=== PATIENT | male | born 1945 | race Caucasian/White ===

== ENCOUNTER 2017-12-23 17:26 | Emergency (ER) | payer OTHER, MEDICARE ==
[2017-12-23] MEDS ORDERED: Cyclobenzaprine 10 MG Tab PO ONE (17:27)
[2017-12-23] MEDS ORDERED: Acetaminophen/HYDROcodone 325-5 MG Tab PO ONE ×2 (17:27→20:59)
--- NOTE | 2017-12-23 17:56 | EDM.PDOC ---
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 Denies hitting his head or LOC. Has been urinating without difficulty and had small BM yesterday. Denies any numbness/ tingling in legs or arms. Vision is normal. Hearing normal. Mentation is normal. Onset Date: 12/20/17 Duration: Day(s):, Constant Location: Reports: Back, Other (left rib pain) Quality: Reports: Ache, Sharp, Throbbing Severity: Moderate Improves with: Reports: None Worsens with: Reports: Movement Associated Symptoms: Reports: No Other Symptoms Back Pain Score (Numeric/FACES): 3 - Related Data Allergies Allergy/AdvReac Type Severity Reaction Status Date / Time No Known Allergies Allergy Verified 12/23/17 17:52 Home Meds: Home Meds Naproxen Sodium [Aleve] 220 mg PO TID PRN 12/23/17 [History] Past Medical History Cardiovascular History: Reports: CAD, Hypertension - Past Surgical History Cardiovascular Surgical History: Reports: Coronary Artery Bypass GI Surgical History: Reports: Hernia, Abdominal Social & Family History - Family History Family Medical History: Noncontributory ED ROS GENERAL - Review of Systems Review Of Systems: See Below Constitutional: Reports: No Symptoms HEENT: Reports: No Symptoms Respiratory: Reports: No Symptoms Cardiovascular: Reports: No Symptoms Endocrine: Reports: No Symptoms GI/Abdominal: Reports: Constipation Musculoskeletal: Reports: Back Pain, Joint Pain, Muscle Pain, Muscle Stiffness, Other (left rib pain) Skin: Reports: No Symptoms Neurological: Reports: No Symptoms Psychiatric: Reports: No Symptoms Hematologic/Lymphatic: Reports: No Symptoms Immunologic: Reports: No Symptoms ED EXAM, GENERAL - Physical Exam Exam: See Below Exam Limited By: No Limitations General Appearance: Alert, WD/WN, No Apparent Distress Eye Exam: Bilateral Eye: EOMI, PERRL Ears: Normal External Exam, Normal Canal, Hearing Grossly Normal Nose: Normal Inspection, Normal Mucosa, No Blood Throat/Mouth: Normal Inspection, Normal Lips, Normal Teeth, Normal Gums, Normal Oropharynx, Normal Voice, No Airway Compromise Head: Atraumatic, Normocephalic Neck: Normal Inspection, Supple, Non-Tender, Full Range of Motion, Other ( tenderness left upper trap muscle; no C spine tenderness or step off deformity.) Respiratory/Chest: No Respiratory Distress, Lungs Clear, Normal Breath Sounds, No Accessory Muscle Use, Chest Non-Tender Cardiovascular: Normal Peripheral Pulses, Regular Rate, Rhythm, No Edema, No Gallop, No JVD, No Murmur, No Rub GI/Abdominal: Normal Bowel Sounds, Soft, Non-Tender, No Organomegaly, No Distention, No Abnormal Bruit, No Mass, Pelvis Stable (Male) Exam: Deferred Rectal (Males) Exam: Deferred Back Exam: Normal Inspection, Full Range of Motion, Paraspinal Tenderness, Other (tenderness low thoracic spine on palpation, at T 12 area; and left upper trap muscle tenderness on palpation.) Extremities: Normal Inspection, Normal Range of Motion, Non-Tender, No Pedal Edema, Normal Capillary Refill Neurological: Alert, Oriented, CN II-XII Intact, Normal Cognition, Normal Gait, No Motor/Sensory Deficits, Other (Strength is 5/5 throughout; sensation is intact throughout; decreased patella reflex left leg and absent on right. Urinated without difficulty. No clonus present.) Psychiatric: Normal Affect, Normal Mood Skin Exam: Warm, Dry, Intact, Normal Color, No Rash Course - Vital Signs Text/Narrative:: Offered patient pain medication or muscle relaxer and he states pain is controlled now and he doesn't need anything. Last Recorded V/S: Last Vital Signs Temp 36.8 C 12/23/17 20:40 Pulse 65 12/23/17 20:40 Resp 16 12/23/17 20:40 BP 173/70 H 12/23/17 20:40 Pulse Ox 97 12/23/17 20:40 - Orders/Labs/Meds Orders: Active Orders 24 hr Category Date Time Status Abdomen Pelvis w Cont [CT] Stat Exams 12/23/17 17:50 Taken Chest w Cont [CT] Stat Exams 12/23/17 17:50 Taken Labs: Laboratory Tests 12/23/17 12/23/17 Range/Units 18:18 18:18 WBC 6.7 (5.0-10.0) 10^3/uL RBC 5.00 (4.50-6.00) 10^6/uL Hgb 15.1 (14.0-18.0) g/dL Hct 43.9 (40.0-54.0) % MCV 87.8 (82.0-94.0) fL MCH 30.2 (27.0-32.0) pg MCHC 34.4 (33.0-38.0) g/dL RDW Coeff of Zachary 13.2 (11.0-15.0) % Plt Count 160 (150-400) 10^3/uL Neut % (Auto) 56.3 (35-85) % Lymph % (Auto) 29.4 (10-55) % [place] % (Auto) 8.6 (0-16) % Eos % (Auto) 4.7 (0-5) % Baso % (Auto) 1.0 (0-3) % Neut # (Auto) 3.79 (1.80-7.00) 10^3/uL Lymph # (Auto) 1.98 (1.00-4.80) 10^3/uL [place] # (Auto) 0.58 (0.00-0.80) 10^3/uL Eos # (Auto) 0.32 (0.00-0.45) 10^3/uL Baso # (Auto) 0.07 10^3/uL Sodium 138 (136-145) mEq/L Potassium 4.1 (3.5-5.0) mEq/L Chloride 103 (98-106) mEq/L Carbon Dioxide 27 (21-32) mmol/L BUN 19 H (7-18) mg/dL Creatinine 1.0 (0.7-1.3) mg/dL Est Cr Clr Drug Dosing 64.60 mL/min Estimated GFR (MDRD) > 60 (>=60) mL/min Glucose 104 H (75-99) mg/dL Calcium 8.4 (8.4-10.1) mg/dL Total Bilirubin 0.7 (0.0-1.0) mg/dL AST 26 (15-37) U/L ALT 29 (12-78) U/L Alkaline Phosphatase 80 (46-116) U/L Total Protein 6.8 (6.4-8.2) g/dL Albumin 3.6 (3.4-5.0) g/dL Meds: Medications Discontinued Medications Generic Name Dose Route Start Last Admin Trade Name Cheryl PRN Reason Stop Dose Admin Hydrocodone Bitart/Acetaminophen 1 tab 12/23/17 20:59 12/23/17 21:04 [place] 325-5 Mg PO 12/23/17 21:00 1 tab ONETIME ONE Administration Hydrocodone Bitart/Acetaminophen 2 packet 12/23/17 21:35 Take Home: Acetaminophen/Hydrocod, 2 Tab Pack PO 12/23/17 21:36 ONETIME ONE Cyclobenzaprine HCl 1 packet 12/23/17 21:35 Take Home: Cyclobenzaprine 10 Mg, 4 Tab Pack PO 12/23/17 21:36 ONETIME ONE Iopamidol 100 ml 12/23/17 17:57 12/23/17 18:48 Isovue-300 (61%) IVPUSH 12/23/17 17:58 100 ml ONETIME ONE Administration - Radiology Interpretation CT Results Date: 12/23/17 (T 12 burst fracture) CT Results Time: 20:32 (pulmonary nodules) Departure - Departure Time of Disposition: 21:39 Disposition: Home, Self-Care 01 Condition: Good Clinical Impression: Burst fracture of thoracic vertebra, Pulmonary nodule, Kidney cysts, Liver cyst , Hiatal hernia - Discharge Information *PRESCRIPTION DRUG MONITORING PROGRAM REVIEWED*: Not Applicable *COPY OF PRESCRIPTION DRUG MONITORING REPORT IN PATIENT RERE: Not Applicable Instructions: Hiatal Hernia, Pulmonary Nodule, Vertebral Fracture, [id number] Referrals: Provider,Unknown [Primary Care Provider] - Forms: ED Department Discharge Additional Instructions: Follow up with Dr. Diaz, Neurosurgeon on Monday at [address], [place], call [phone] for appt. time. Follow up with Improvement Auditor as soon as possible for lung nodules. Follow up with J2Ee Consultant for liver cyst. Follow up with Audiometrist for kidney cyst. Constipation- high fiber diet, plenty of fluids. Start Colace and Dulcolax twice daily. If symptoms worsen ie. numbness/ tingling in legs, unable to urinate or weakness in legs go to ED immediately. No lifting or twisting. - Problem List & Annotations (1) Closed burst fracture of T12 vertebra SNOMED Code(s): 407489653 Code(s): S22.081A - STABLE BURST FRACTURE OF T11-T12 VERTEBRA, INIT FOR CLOS FX Status: Acute Current Visit: Yes (2) Incidental pulmonary nodule SNOMED Code(s): 914860921 Code(s): R91.1 - SOLITARY PULMONARY NODULE Status: Acute Current Visit: Yes - Problem List Review Problem List Initiated/Reviewed/Updated: Yes - My Orders Last 24 Hours: My Active Orders 12/23/17 17:50 Abdomen Pelvis w Cont [CT] Stat Chest w Cont [CT] Stat - Assessment/Plan Last 24 Hours: My Active Orders 12/23/17 17:50 Abdomen Pelvis w Cont [CT] Stat Chest w Cont [CT] Stat Assessment:: T 12 burst fracture, back pain Pulmonary nodules, incidental finding. Constipation Hiatal hernia Simple cysts on liver simple cysts on kidney Plan: Consulted with Dr. Diaz, Neurosurgeon at [facility], whom recommends follow up in his office on Monday. Given take home pack of Flexeril and Hydrocodone (2 packs.) Follow up with Gastroenterology for liver cyst. Follow up with Nephrology for cyst on kidney. Follow up with Pulmonology for lung nodules. Constipation- advised to start Colace and Dulcolax, high fiber diet and plenty of fluids. Discussed all findings with patient and treatment plan and he verbalizes understanding and agreement.
[2017-12-23] MEDS ORDERED: Iopamidol 612 MG/ML 100 ML Bottle IVPUSH ONE (17:57)
[2017-12-23 18:41] LABS: CHLORIDE,CL 103 mEq/L (98-106); SODIUM,NA 138 mEq/L (136-145)
[2017-12-23] MEDS ORDERED: Take Home: Acetaminophen/HYDROcodone 325-5 MG, 2 Tab Pack PO ONE (21:35)
[2017-12-23] MEDS ORDERED: Take Home: Cyclobenzaprine 10 MG Tab, 4 Tab Pack PO ONE (21:35)
== END 2017-12-23 21:55 | disposition home or self-care (01) ==
LOC: CC.ED 17:26
DX: S22.081A Stable burst fracture of T11-T12 vertebra, initial encounter for closed fracture (principal); I10 Essential (primary) hypertension; W19.XXXA Unspecified fall, initial encounter
CPT/HCPCS: 36415; 71260; 74177; 80053; 85025; 99284; A9270; Q9967

== ENCOUNTER → 2018-02-01 | Day surgery (SDC) | payer MEDICARE, OTHER ==
[~2018-02-01] MED LIST: Lactated Ringers 1,000 ML IV SCH; Midazolam 1 MG/ML 2 ML SDV IV ONE; Midazolam 1 MG/ML 2 ML SDV ONE; fentaNYL 100 MCG/2 ML SDV IV ONE; fentaNYL 100 MCG/2 ML SDV ONE
--- NOTE | 2018-02-01 14:23 | OR ---
DATE OF OPERATION: 02/01/2018 PREOPERATIVE DIAGNOSIS: SCREENING COLONOSCOPY. POSTOPERATIVE DIAGNOSIS: SCREENING COLONOSCOPY. SURGEON: Otto Barrios MD PROCEDURE: TOTAL COLONOSCOPY. ANESTHESIA: Conscious sedation with IV Versed and fentanyl. SPECIMEN: None. FINDINGS: Mild sigmoid diverticulosis, otherwise normal. RECOMMENDATIONS: Followup colonoscopy for symptoms only. INDICATION FOR PROCEDURE: This 72-year-old male presents for screening colonoscopy. He had one over 10 years ago. DESCRIPTION OF PROCEDURE: After adequate preparation, a colonoscope was inserted into the rectum. This was easily passed all the way to the cecum. Confirmation of the cecum was made by visualization of the ileocecal valve and palpation in the right lower quadrant. I could also see a light shining through the right lower quadrant. A photograph of the ileocecal valve was taken. The bowel prep was good. On withdrawal of the scope, no abnormalities were noted except for mild sigmoid diverticulosis. Anal and rectal examinations were normal. There was no evidence of polyp growth. FABI/SHANNON /[id number] [facility] [place]
== END ==
LOC: CC.SDS 08:08
PROVIDERS: ATTEND Surgery
DX: Z12.11 Encounter for screening for malignant neoplasm of colon (principal); K57.30 Diverticulosis of large intestine without perforation or abscess without bleeding; I10 Essential (primary) hypertension; I25.10 Atherosclerotic heart disease of native coronary artery without angina pectoris; Z79.899 Other long term (current) drug therapy
CPT/HCPCS: 45378; J2250; J3010; J7120

== ENCOUNTER 2018-05-13 11:01 | Emergency (ER) | payer MEDICARE, OTHER ==
[2018-05-13] MEDS ORDERED: Cephalexin 500 MG Cap PO ONE (11:02)
[2018-05-13] MEDS ORDERED: Take Home: Cephalexin 500 MG Cap, 4 Cap Pack PO ONE (11:18)
--- NOTE | 2018-05-13 11:24 | EDM.PDOC ---
ED HPI GENERAL MEDICAL PROBLEM - General Chief Complaint: General Stated Complaint: itchy leg Time Seen by Provider: 05/13/18 11:12 Source of Information: Reports: Patient - History of Present Illness INITIAL COMMENTS - FREE TEXT/NARRATIVE: Patient has had right itchy leg for the last week and today put vingear on his leg and thinks now that something is in his leg. Says it is very bothersome and he has been using hydrocortisone topically. denies pain. or travel outside the [place] in the last 12 months. denies numbness or tingling. fever or chills. Onset: Gradual Onset Date: 05/06/18 Duration: Day(s): Location: Reports: Lower Extremity, Left Quality: Reports: Other (itching. 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 ) - Related Data Allergies Allergy/AdvReac Type Severity Reaction Status Date / Time No Known Allergies Allergy Verified 05/13/18 11:02 Home Meds: Home Meds Naproxen Sodium [Aleve] 250 mg PO BID PRN 12/23/17 [History] Lisinopril 10 mg PO DAILY 02/01/18 [History] Past Medical History Cardiovascular History: Reports: CAD, Hypertension Respiratory History: Reports: None - Past Surgical History Cardiovascular Surgical History: Reports: Coronary Artery Bypass Respiratory Surgical History: Reports: None GI Surgical History: Reports: Hernia, Abdominal - History Comment History Comment: reviewed and agree with nursing assessment. Social & Family History - Family History Family Medical History: Noncontributory - Tobacco Use Smoking Status *Q: Never Smoker - Living Situation & Occupation Living situation: Reports: , with Family (reviewed and agree with nursing assessement of and ) ED ROS GENERAL - Review of Systems Review Of Systems: See Below Constitutional: Reports: No Symptoms. Denies: Fever HEENT: Reports: No Symptoms Respiratory: Reports: No Symptoms Cardiovascular: Reports: No Symptoms Musculoskeletal: Reports: No Symptoms Skin: Reports: Rash, Erythema (left posterior leg) Neurological: Reports: No Symptoms Psychiatric: Reports: No Symptoms ED EXAM, GENERAL - Physical Exam Exam: See Below Exam Limited By: No Limitations General Appearance: Alert, WD/WN, No Apparent Distress Eye Exam: Bilateral Eye: PERRL Ears: Normal External Exam, Normal Canal, Hearing Grossly Normal Nose: Normal Inspection, Normal Mucosa Throat/Mouth: Normal Inspection, Normal Oropharynx, Normal Voice, No Airway Compromise Head: Atraumatic, Normocephalic Neck: Normal Inspection, Supple Respiratory/Chest: No Respiratory Distress, Lungs Clear, Normal Breath Sounds Cardiovascular: Normal Peripheral Pulses, Regular Rate, Rhythm Extremities: Non-Tender, No Pedal Edema, Normal Capillary Refill, Increased Warmth. No: Silvino's Sign Neurological: Alert, Oriented, CN II-XII Intact, Normal Cognition, Normal Gait Psychiatric: Normal Affect, Normal Mood Skin Exam: Warm, Dry, Intact, Normal Color Course - Vital Signs Last Recorded V/S: Last Vital Signs Temp 97.2 F 05/13/18 11:05 Pulse 81 05/13/18 11:05 Resp 18 05/13/18 11:05 BP 149/94 H 05/13/18 11:05 Pulse Ox 97 05/13/18 11:05 - Orders/Labs/Meds Meds: Medications Discontinued Medications Generic Name Dose Route Start Last Admin Trade Name Cheryl PRN Reason Stop Dose Admin Cephalexin 1 packet 05/13/18 11:18 Take Home: Cephalexin 500 Mg, 4 Cap Pack PO 05/13/18 11:19 ONETIME ONE - Re-Assessments/Exams Free Text/Narrative Re-Assessment/Exam: 05/13/18 11:26 patient was advised to use benadryl over the counter- as needed for itching. Take antibiotics till gone. Departure - Departure Time of Disposition: 11:29 Disposition: Home, Self-Care 01 Condition: Good Clinical Impression: Cellulitis and abscess of left leg - Discharge Information *PRESCRIPTION DRUG MONITORING PROGRAM REVIEWED*: No *COPY OF PRESCRIPTION DRUG MONITORING REPORT IN PATIENT RERE: No Instructions: Cellulitis, Adult, [id number] Additional Instructions: Do NOT USE vingear on the leg Take antibioitcs till gone. Use benadryl over the counter for itching continue to use the hydrocortisone topically to the leg. Follow up with Your primary care at the [place] - for further problems or not improving. Return if worse. .
== END 2018-05-13 11:35 | disposition home or self-care (01) ==
LOC: CC.ED 11:01
DX: L03.116 Cellulitis of left lower limb (principal); L02.416 Cutaneous abscess of left lower limb; I10 Essential (primary) hypertension
CPT/HCPCS: 99282; A9270; 99283

== ENCOUNTER 2019-06-15 15:53 | Emergency (ER) | payer MEDICARE, OTHER ==
[2019-06-15] MEDS ORDERED: Tetracaine HCl/PF 0.5% 4 ML Bottle EYEBOTH ONE (15:54)
[2019-06-15] MEDS ORDERED: Distilled Water Ophth Irrig Soln 120 ML Bottle EYEBOTH ONE (15:54)
--- NOTE | 2019-06-15 16:25 | EDM.PDOC ---
ED HPI GENERAL MEDICAL PROBLEM - General Chief Complaint: General Stated Complaint: foreign body in eye Time Seen by Provider: 06/15/19 16:15 Source of Information: Reports: Patient History Limitations: Reports: No Limitations - History of Present Illness INITIAL COMMENTS - FREE TEXT/NARRATIVE: This patient is a 74 year old male that presents to the ER. 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 Reports may have got metal or oil in right eye. Reports it started bothering him last night. Patient reports right eye watering, burning, with little blurriness. He reports foreign body sensation in the right upper eye. Denies headache, dizziness, vision loss, n , v, unilateral weaknesses, or pain. Onset Date: 06/14/19 Duration: Day(s): (1) Severity: Mild Improves with: Reports: None Worsens with: Reports: None Associated Symptoms: Denies: Confusion, Chest Pain, Cough, cough w sputum, Diaphoresis, Fever/Chills, Headaches, Loss of Appetite, Malaise, Nausea/Vomiting , Rash, Seizure, Shortness of Breath, Syncope, Weakness - Related Data Allergies Allergy/AdvReac Type Severity Reaction Status Date / Time No Known Allergies Allergy Verified 06/15/19 16:05 Home Meds: Home Meds Naproxen Sodium [Aleve] 250 mg PO BID PRN 12/23/17 [History] Aspirin 81 mg PO DAILY 06/15/19 [History] L.acidoph,Paracasei, B.lactis [Probiotic] 1 each PO DAILY 06/15/19 [History] Multivitamin [Multivitamins] 1 cap PO DAILY 06/15/19 [History] Past Medical History Cardiovascular History: Reports: CAD, Hypertension Respiratory History: Reports: None - Past Surgical History Cardiovascular Surgical History: Reports: Coronary Artery Bypass Respiratory Surgical History: Reports: None GI Surgical History: Reports: Hernia, Abdominal - History Comment History Comment: reviewed and agree with nursing assessment. Social & Family History - Family History Family Medical History: Noncontributory - Tobacco Use Smoking Status *Q: Never Smoker - Caffeine Use Caffeine Use: Reports: Coffee - Recreational Drug Use Recreational Drug Use: No - Living Situation & Occupation Living situation: Reports: , with Family (reviewed and agree with nursing assessement of and FH) ED ROS GENERAL - Review of Systems Review Of Systems: See Below Constitutional: Reports: No Symptoms HEENT: Reports: Eye Discharge (watery right), Vision Change (mild blurry. No loss. ). Denies: Contact Lenses, Eye Pain, Glasses Respiratory: Reports: No Symptoms Cardiovascular: Reports: No Symptoms Endocrine: Reports: No Symptoms GI/Abdominal: Reports: No Symptoms : Reports: No Symptoms Musculoskeletal: Reports: No Symptoms Skin: Reports: No Symptoms Neurological: Reports: No Symptoms Psychiatric: Reports: No Symptoms Hematologic/Lymphatic: Reports: No Symptoms Immunologic: Reports: No Symptoms ED EXAM, GENERAL - Physical Exam Exam: See Below Exam Limited By: No Limitations General Appearance: Alert, WD/WN, No Apparent Distress Eye Exam: Bilateral Eye: EOMI, Normal Inspection, PERRL, Other (Right inner upper lid stye. NO fb seen, no abrasion seen. Fundoscopic exam with blue light. Tetracaine applied to eye prior. Vision acuity: L 20/25, R 20/30, DU 20/30) Ears: Normal External Exam, Normal Canal, Hearing Grossly Normal, Normal TMs Ear Exam: Bilateral Ear: Auricle Normal, Canal Normal, TM normal Nose: Normal Inspection, Normal Mucosa, No Blood Throat/Mouth: Normal Inspection, Normal Lips, Normal Teeth, Normal Gums, Normal Oropharynx, Normal Voice, No Airway Compromise Head: Atraumatic, Normocephalic Neck: Normal Inspection, Supple, Non-Tender, Full Range of Motion Respiratory/Chest: No Respiratory Distress, Lungs Clear, Normal Breath Sounds, No Accessory Muscle Use Cardiovascular: Normal Peripheral Pulses, Regular Rate, Rhythm Peripheral Pulses: 2+: Radial (L), Radial (R) Neurological: Alert, Oriented, Normal Cognition, Normal Gait, No Motor/Sensory Deficits Psychiatric: Normal Affect, Normal Mood Skin Exam: Warm, Dry, Intact, Normal Color, No Rash Lymphatic: No Adenopathy ED GENERAL MEDICAL PROCEDURES - Additional/Other Procedure(s) Other (Free Text) Procedure(s): Right eye irrigated with 250ml NS. No complications. Course - Vital Signs Last Recorded V/S: Last Vital Signs Temp 96.8 F L 06/15/19 15:53 Pulse 70 06/15/19 15:53 Resp 18 06/15/19 15:53 BP 152/75 H 06/15/19 15:53 Pulse Ox 99 06/15/19 15:53 - Orders/Labs/Meds Meds: Medications Discontinued Medications Generic Name Dose Route Start Last Admin Trade Name Cheryl PRN Reason Stop Dose Admin Tetracaine HCl 1 ml 06/15/19 16:23 06/15/19 16:45 Tetracaine 0.5% Steri-Unit Zohra EYERT 06/15/19 16:24 1 bottle ASDIRECTED ONE Administration Departure - Departure Time of Disposition: 16:42 Disposition: Home, Self-Care 01 Condition: Good Clinical Impression: Sty, internal Qualifiers: Laterality: right Eyelid: upper Qualified Code(s): H00.021 - Hordeolum internum right upper eyelid - Discharge Information *PRESCRIPTION DRUG MONITORING PROGRAM REVIEWED*: Not Applicable *COPY OF PRESCRIPTION DRUG MONITORING REPORT IN PATIENT RERE: Not Applicable Instructions: Stye, Eye Foreign Body, [id number] Referrals: Krysta Zhang MD [Primary Care Provider] - Forms: ED Department Discharge Additional Instructions: Followup with your primary care provider Return to the ER for worsening of condition or any emergent concerns No eye rubbing Call health benefits specialist Monday to be seen Gentamicin opth ointment apply ribbon to right eye three times a day for 7 days #1 tube take home Sepsis Event Note - Evaluation Sepsis Screening Result: No Definite Risk - Focused Exam Vital Signs: Vital Signs Temp Pulse Resp BP Pulse Ox 06/15/19 15:53 96.8 F L 70 18 152/75 H 99 Date Exam was Performed: 06/15/19 Time Exam was Performed: 16:53 - Assessment/Plan Plan: PLEASE SEE RN NOTE FOR PFSH.
[2019-06-15] MEDS: Tetracaine HCl/PF 0.5% 4 ML Bottle EYERT ONE (16:45)
== END 2019-06-15 17:05 | disposition home or self-care (01) ==
LOC: CC.ED 15:53 → SUPCPDRO 15:53 → CC.ED 17:05
DX: H00.021 Hordeolum internum right upper eyelid (principal); I25.10 Atherosclerotic heart disease of native coronary artery without angina pectoris; I10 Essential (primary) hypertension; Z79.82 Long term (current) use of aspirin
CPT/HCPCS: 99283; A9270-GY

== ENCOUNTER 2020-01-17 20:27 | Observation (INO) | payer OTHER ==
--- NOTE | 2020-01-17 20:49 | EDM.PDOC ---
ED HPI GENERAL MEDICAL PROBLEM - General Chief Complaint: General Stated Complaint: Chest Pain Time Seen by Provider: 01/17/20 20:46 Source of Information: Reports: Patient History Limitations: Reports: No Limitations - History of Present Illness INITIAL COMMENTS - FREE TEXT/NARRATIVE: This patient is a 74 year old pleasant male that presents to the ER. Patient reports that at 7:30pm this evening he was walking around the house, then sitting in the chair and started having tightness in his chest to the right and left side and sides under his arms. He reports he was short of breath, and felt like his heart was beating fast in chest. Patient reports that he came to the ER, in route, he took 1 Nitro. He reports after taking his nitro, his chest pain went away. I was called by the RN and reported patient was rate 140s a-fib RVR. I came to see patient, as soon as I entered the exam room, the patient on the monitor converted to controlled rate in the 60s. Patient reports now on exam, he has no chest pain/tightness, shortness of breath, or heart beating fast. He reports he feels good. 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 He also reports Nov at [facility] left carotidectomy. Patient reports that he saw his PCP in September. Patient has a medication list with him, it does list Metoprolol succinate 50mg Q24hr ER. However, patient brought in all his medication bottles, there is no Metoprolol or anything that I see for rate control. I asked patient if he is taking Metoprolol, he said he does not think so. He takes what is in the bottles he brought. Onset: Today Onset Date: 01/17/20 Onset Time: 19:30 Location: Reports: Chest Quality: Reports: Other ("tightness") Severity: Moderate Improves with: Reports: None Worsens with: Reports: None Associated Symptoms: Reports: Chest Pain, Shortness of Breath. 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 - Related Data Allergies Allergy/AdvReac Type Severity Reaction Status Date / Time No Known Allergies Allergy Verified 06/15/19 16:05 Home Meds: Home Meds Naproxen Sodium [Aleve] 250 mg PO BID PRN 12/23/17 [History] Aspirin 81 mg PO DAILY 06/15/19 [History] L.acidoph,Paracasei, B.lactis [Probiotic] 1 each PO DAILY 06/15/19 [History] Multivitamin [Multivitamins] 1 cap PO DAILY 06/15/19 [History] Clopidogrel Bisulfate [Plavix] 75 mg PO DAILY 01/17/20 [History] Isosorbide Mononitrate [Imdur] 15 mg PO DAILY 01/17/20 [History] Pantoprazole [ProTONIX] 40 mg PO DAILY 01/17/20 [History] Rosuvastatin Calcium 5 mg PO DAILY 01/17/20 [History] amLODIPine [Norvasc] 2.5 mg PO DAILY 01/17/20 [History] oxyCODONE 5 mg PO Q6H 01/17/20 [History] Past Medical History Cardiovascular History: Reports: CAD, Hypertension Respiratory History: Reports: None - Past Surgical History Cardiovascular Surgical History: Reports: Coronary Artery Bypass Respiratory Surgical History: Reports: None GI Surgical History: Reports: Hernia, Abdominal - History Comment History Comment: reviewed and agree with nursing assessment. Social & Family History - Family History Family Medical History: No Pertinent Family History - Tobacco Use Tobacco Use Status *Q: Never Tobacco User Second Hand Smoke Exposure: No - Caffeine Use Caffeine Use: Reports: None - Recreational Drug Use Recreational Drug Use: No - Living Situation & Occupation Living situation: Reports: , with Family (reviewed and agree with nursing assessement of SH and FH) ED ROS GENERAL - Review of Systems Review Of Systems: See Below Constitutional: Reports: No Symptoms HEENT: Reports: No Symptoms Respiratory: Reports: Shortness of Breath. Denies: Wheezing, Pleuritic Chest Pain, Cough, Sputum, Hemoptysis Cardiovascular: Reports: Chest Pain, Palpitations ("feels like heart beating fast"). Denies: Dyspnea on Exertion, Edema, Lightheadedness, PND, Syncope Endocrine: Reports: No Symptoms GI/Abdominal: Reports: No Symptoms. Denies: Nausea, Vomiting : Reports: No Symptoms Musculoskeletal: Reports: No Symptoms Skin: Reports: No Symptoms Neurological: Reports: No Symptoms Psychiatric: Reports: No Symptoms Hematologic/Lymphatic: Reports: No Symptoms Immunologic: Reports: No Symptoms ED EXAM, GENERAL - Physical Exam Exam: See Below Exam Limited By: No Limitations General Appearance: Alert, WD/WN, No Apparent Distress Eye Exam: Bilateral Eye: Normal Inspection, PERRL Ears: Normal External Exam, Normal Canal, Hearing Grossly Normal, Normal TMs Ear Exam: Bilateral Ear: Auricle Normal, Canal Normal, TM normal Nose: Normal Inspection, Normal Mucosa, No Blood Throat/Mouth: Normal Inspection, Normal Lips, Normal Teeth, Normal Gums, Normal Oropharynx, Normal Voice, No Airway Compromise Head: Atraumatic, Normocephalic Neck: Normal Inspection, Supple, Non-Tender, Full Range of Motion Respiratory/Chest: No Respiratory Distress, Lungs Clear, Normal Breath Sounds, No Accessory Muscle Use, Chest Non-Tender Cardiovascular: Normal Peripheral Pulses, Regular Rate, Rhythm (60s regular on my exam), No Edema, No Gallop, No JVD, No Murmur, No Rub Peripheral Pulses: 2+: Radial (L), Radial (R), Posterior Tibial (L), Posterior Tibial (R) GI/Abdominal: Soft, Non-Tender Back Exam: Normal Inspection Extremities: Normal Inspection, Normal Range of Motion, Non-Tender, No Pedal Edema, Normal Capillary Refill Neurological: Alert, Oriented, CN II-XII Intact, Normal Cognition, Normal Gait, No Motor/Sensory Deficits Psychiatric: Normal Affect, Normal Mood Skin Exam: Warm, Dry, Intact, Normal Color, No Rash, Other (Left carotid surgical scar, hearling well. No heat, drainage, redness. ) #1 Interpretation EKG Date: 01/17/20 Time: 20:37 Rhythm: A-Fib Rate (Beats/Min): 105 ST-T: Normal EKG Interpretation Comments: This EKG was taken in the middle of A-FIB conversion on own. #2 Interpretation EKG Date: 01/17/20 Time: 20:36 Rhythm: NSR QRS: Normal ST-T: Normal QT: Normal Course - Vital Signs Last Recorded V/S: Last Vital Signs Temp 98 F 01/17/20 21:26 Pulse 72 01/17/20 21:26 Resp 18 01/17/20 21:26 BP 137/80 01/17/20 21:26 Pulse Ox 96 01/17/20 21:26 - Orders/Labs/Meds Orders: Active Orders 24 hr Category Date Time Status EKG Documentation Completion [RC] STAT Care 01/17/20 20:09 Active Chest 2V [CR] Stat Exams 01/17/20 20:09 Taken TROPONIN I [CHEM] Stat Lab 01/17/20 23:45 Ordered Labs: Laboratory Tests 01/17/20 01/17/20 01/17/20 Range/Units 20:51 20:51 20:51 WBC 7.2 (5.0-10.0) 10^3/uL RBC 5.02 (4.50-6.00) 10^6/uL Hgb 14.9 (14.0-18.0) g/dL Hct 43.7 (40.0-54.0) % MCV 87.1 (82.0-94.0) fL MCH 29.7 (27.0-32.0) pg MCHC 34.1 (33.0-38.0) g/dL RDW Coeff of Zachary 13.3 (11.0-15.0) % Plt Count 196 (150-400) 10^3/uL Neut % (Auto) 63.1 (35-85) % Lymph % (Auto) 26.1 (10-55) % [place] % (Auto) 6.8 (0-16) % Eos % (Auto) 3.3 (0-5) % Baso % (Auto) 0.7 (0-3) % Neut # (Auto) 4.57 (1.80-7.00) 10^3/uL Lymph # (Auto) 1.89 (1.00-4.80) 10^3/uL [place] # (Auto) 0.49 (0.00-0.80) 10^3/uL Eos # (Auto) 0.24 (0.00-0.45) 10^3/uL Baso # (Auto) 0.05 10^3/uL PT 10.6 (9.7-12.3) SEC INR 1.05 (0.92-1.18) APTT 25.1 (23.2-32.3) SEC Sodium 138 (136-145) mEq/L Potassium 4.2 (3.5-5.0) mEq/L Chloride 104 (98-106) mEq/L Carbon Dioxide 28 (21-32) mmol/L BUN 17 (7-18) mg/dL Creatinine 1.0 (0.7-1.3) mg/dL Est Cr Clr Drug Dosing 62.70 mL/min Estimated GFR (MDRD) > 60 (>=60) mL/min Glucose 127 H (75-99) mg/dL Calcium 8.9 (8.4-10.1) mg/dL Total Bilirubin 0.6 (0.0-1.0) mg/dL AST 17 (15-37) U/L ALT 23 (12-78) U/L Alkaline Phosphatase 73 (46-116) U/L Lactate Dehydrogenase 136 (100-190) U/L Creatine Kinase 84 (35-232) U/L Troponin I 0.190 H (0.00-0.06) ng/mL Total Protein 6.9 (6.4-8.2) g/dL Albumin 3.7 (3.4-5.0) g/dL Amylase 49 (25-115) U/L SARS CoV-2 RNA Rapid LAUREL (NEGATIVE) 01/17/20 Range/Units 21:07 WBC (5.0-10.0) 10^3/uL RBC (4.50-6.00) 10^6/uL Hgb (14.0-18.0) g/dL Hct (40.0-54.0) % MCV (82.0-94.0) fL MCH (27.0-32.0) pg MCHC (33.0-38.0) g/dL RDW Coeff of Zachary (11.0-15.0) % Plt Count (150-400) 10^3/uL Neut % (Auto) (35-85) % Lymph % (Auto) (10-55) % [place] % (Auto) (0-16) % Eos % (Auto) (0-5) % Baso % (Auto) (0-3) % Neut # (Auto) (1.80-7.00) 10^3/uL Lymph # (Auto) (1.00-4.80) 10^3/uL [place] # (Auto) (0.00-0.80) 10^3/uL Eos # (Auto) (0.00-0.45) 10^3/uL Baso # (Auto) 10^3/uL PT (9.7-12.3) SEC INR (0.92-1.18) APTT (23.2-32.3) SEC Sodium (136-145) mEq/L Potassium (3.5-5.0) mEq/L Chloride (98-106) mEq/L Carbon Dioxide (21-32) mmol/L BUN (7-18) mg/dL Creatinine (0.7-1.3) mg/dL Est Cr Clr Drug Dosing mL/min Estimated GFR (MDRD) (>=60) mL/min Glucose (75-99) mg/dL Calcium (8.4-10.1) mg/dL Total Bilirubin (0.0-1.0) mg/dL AST (15-37) U/L ALT (12-78) U/L Alkaline Phosphatase (46-116) U/L Lactate Dehydrogenase (100-190) U/L Creatine Kinase (35-232) U/L Troponin I (0.00-0.06) ng/mL Total Protein (6.4-8.2) g/dL Albumin (3.4-5.0) g/dL Amylase (25-115) U/L SARS CoV-2 RNA Rapid LAUREL Negative (NEGATIVE) - Re-Assessments/Exams Free Text/Narrative Re-Assessment/Exam: 01/17/20 21:18 Patient initial troponin is indeterminant range. He is currently in NSR rate in 60s. He currently has no chest pain, shortness of breath, or palpitations. He reports he feels fine. I have called [facility] in [place]. I spoke to Dr. Brasher support manager about this patient. He reports the patient is due to have a CABG in 2-4 more weeks. He reports that there has already been an angiogram and a normal ejection fraction. He reports that his troponin is elevated due to his a- fib and we already know he has blockages. He reports no surgical intervention at this time due to reading note of surgeon. He reports to admit patient and keep until Monday. He reports that expect the second troponin to elevate even more. If goes above 0.6, then call him back. If patient becomes symptomatic, call him back. Reports to have out patient echo done. He reports to restart his Metoprolol. I will admit the patient to the hospital observation. Patient has no symptoms at this time, controlled sinus. Departure - Departure Time of Disposition: 21:56 Disposition: Refer to Observation Condition: Fair Clinical Impression: Atrial fibrillation with rapid ventricular response - Discharge Information *PRESCRIPTION DRUG MONITORING PROGRAM REVIEWED*: Not Applicable *COPY OF PRESCRIPTION DRUG MONITORING REPORT IN PATIENT RERE: Not Applicable Forms: ED Department Discharge Sepsis Event Note (ED) - Evaluation Sepsis Screening Result: No Definite Risk - Focused Exam Vital Signs: Vital Signs Temp Pulse Resp BP Pulse Ox 01/17/20 21:26 98 F 72 18 137/80 96 01/17/20 20:32 98.2 F 67 14 131/79 97 - My Orders Last 24 Hours: My Active Orders 01/17/20 20:09 EKG Documentation Completion [RC] STAT Chest 2V [CR] Stat 01/17/20 23:45 TROPONIN I [CHEM] Stat - Assessment/Plan Last 24 Hours: My Active Orders 01/17/20 20:09 EKG Documentation Completion [RC] STAT Chest 2V [CR] Stat 01/17/20 23:45 TROPONIN I [CHEM] Stat Plan: PLEASE SEE RN NOTE FOR PFSH
[2020-01-17 21:03] LABS: PTT,PARTIAL THROMBOPLSTIN TIME 25.1 SEC (23.2-32.3)
[2020-01-17 21:08] LABS: CHLORIDE,CL 104 mEq/L (98-106); SODIUM,NA 138 mEq/L (136-145)
[2020-01-17] MEDS ORDERED: Morphine 2 MG/ML SYRINGE IVPUSH PRN (22:42)
[2020-01-17] MEDS ORDERED: Ondansetron 4 MG/2 ML SDV IV PRN (22:42)
[2020-01-17] MEDS ORDERED: OXYCODONE 5 MG PO SCH (22:42)
[2020-01-17] MEDS ORDERED: Naproxen 500 MG Tab PO PRN (23:46)
[2020-01-18] MEDS ORDERED: Aspirin 81 MG Tab.Chew PO ONE (00:41)
[2020-01-18] MEDS ORDERED: Enoxaparin 80 MG/0.8 ML Syringe SUBCUT SCH (00:45)
[2020-01-18] MEDS ORDERED: Nitroglycerin 2% Oint 1 GM UD Packet TOP ONE (00:47)
[2020-01-18] MEDS ORDERED: Nitroglycerin 0.4 MG Tab.SL SL PRN (00:47)
[2020-01-18] MEDS ORDERED: Aspirin 81 MG Tab.EC ONE (01:15)
[2020-01-18] MEDS ORDERED: Enoxaparin 80 MG/0.8 ML Syringe ONE (01:15)
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
[2020-01-18] MEDS ORDERED: Nitroglycerin 0.4 MG Tab.SL ONE (01:16)
[2020-01-18] MEDS ORDERED: Aspirin 81 MG Tab.Chew ONE (01:24)
[2020-01-18] MEDS ORDERED: Nitroglycerin 2% Oint 1 GM UD Packet ONE (01:25)
[2020-01-18] MEDS ORDERED: ISOSORBIDE MONONITRATE 30 MG PO SCH (08:00)
[2020-01-18] MEDS ORDERED: Aspirin 81 MG Tab.EC PO SCH (08:00)
[2020-01-18] MEDS ORDERED: Non-Formulary Medication 1 Each (L.Acidoph,Paracasei, B.Lactis [Probiotic] 1 EACH) PO SCH (08:00)
[2020-01-18] MEDS ORDERED: CLOPIDOGREL 75 MG PO SCH (08:00)
[2020-01-18] MEDS ORDERED: PANTOPRAZOLE 40 MG PO SCH (08:00)
[2020-01-18] MEDS ORDERED: Multivitamin Tab PO SCH (08:00)
== END 2020-01-18 02:20 ==
LOC: CC.ED 20:27 → UNDOADMOB 21:50 → CC.MS 21:50 → UNDODISOB 01-18 02:20
PROVIDERS: ADMIT Nurse Practitioner; ATTEND Nurse Practitioner
DX: R07.89 Other chest pain (principal); I48.91 Unspecified atrial fibrillation; Z79.899 Other long term (current) drug therapy; Z79.82 Long term (current) use of aspirin; Z20.828 Contact with and (suspected) exposure to other viral communicable diseases
CPT/HCPCS: 36415; 71046; 80053; 82150; 82550; 83615; 84484; 85025; 85610; 85730; 93005; 93010; 96372; 99285-25; A9270-GY; G0378; J1650; U0002

== ENCOUNTER 2020-05-02 05:24 | Emergency (ER) | payer OTHER ==
[2020-05-02 05:59] LABS: CHLORIDE,CL 101 mEq/L (98-106); SODIUM,NA 138 mEq/L (136-145)
[2020-05-02 06:02] LABS: PTT,PARTIAL THROMBOPLSTIN TIME 27.8 SEC (23.2-32.3)
--- NOTE | 2020-05-02 06:28 | EDM.PDOC ---
ED HPI GENERAL MEDICAL PROBLEM - General Chief Complaint: General Stated Complaint: SOB Time Seen by Provider: 05/02/20 05:52 Source of Information: Reports: Patient History Limitations: Reports: No Limitations - History of Present Illness INITIAL COMMENTS - FREE TEXT/NARRATIVE: This patient is a 74 year old male that presents to the ER. Patient reports that since 3pm yesterday having general weakness and increased shortness of breath. Patient reports that on April 22 having Quadruple bypass, discharged April 29 per patient. Patient reports that he has been short of breath and generally weak since after his surgery, but worse since 3pm yesterday. The patient reports that he came to the ER because last night in bed he tossed and turned and could not sleep. He reports that every time he closed his eyes he had "hallucination". However, he could not explain a hallucination. He described it as closing his eyes, seeing stars and thinking about being short of breath and his feet feeling cold and hot. The patient reports that he is more short of breath with activity and when he thinks about it. Patient reports his and him came up to the hospital yesterday evening. Patient reports that yesterday he got a low blood pressure reading at home of 60s/40s. Patient reports that he wanted to have his medications reviewed and see if they needed to be changed. Patient reports that his tried to call washroom operator but got voicemail. The patient reports when they came to the hospital, he got his blood pressure checked and was told it was normal. He reports that yesterday he was not feeling short of breath or weakness when he came in at about 6pm. Patient reports he did not want to be seen in the ER yesterday. Patient denies headache, dizziness, lightheaded, n, v, d, f, hemoptysis, coughing, back pain, abd pain, leg pain, leg swelling, leg redness. Patient reports that his incision of chest is tender. Patient reports that his LLE is sore from incisions and bruising. Patient reports soreness of the right groin over incision as well. Patient reports after surgery, he was transfused 2 units PRBCs prior to discharge per patient. Onset Date: 05/01/20 Onset Time: 15:00 Severity: Moderate Improves with: Reports: Rest Worsens with: Reports: Other (activity) Context: Reports: Activity Associated Symptoms: Reports: Chest Pain (incision pain per patient), Fever/Chills (feet cold and chilled. ), Shortness of Breath, Weakness (generally). Denies: No Other Symptoms, Confusion, Cough, cough w sputum, Diaphoresis, Headaches, Loss of Appetite, Malaise, Nausea/Vomiting, Rash, Seizu re, Syncope - Related Data Allergies Allergy/AdvReac Type Severity Reaction Status Date / Time No Known Allergies Allergy Verified 05/02/20 05:55 Home Meds: Home Meds Aspirin 81 mg PO DAILY 06/15/19 [History] L.acidoph,Paracasei, B.lactis [Probiotic] 1 each PO DAILY 06/15/19 [History] Clopidogrel Bisulfate [Plavix] 75 mg PO DAILY 01/17/20 [History] Pantoprazole [ProTONIX] 40 mg PO DAILY 01/17/20 [History] Rosuvastatin Calcium 5 mg PO DAILY 01/17/20 [History] amLODIPine [Norvasc] 10 mg PO DAILY 01/17/20 [History] Dane/Vit B12/Folic Acid/Vit B6 [Folic Acid-Vit B6-Vit B12 Tab] 1 each PO DAILY 05/02/20 [History] Digoxin 125 mcg PO DAILY 05/02/20 [History] Ferrous Sulfate 325 mg PO DAILY 05/02/20 [History] Furosemide [Lasix] 40 mg PO BID #16 tab 05/02/20 [Rx] Potassium Chloride 20 meq PO DAILY #14 tablet.er 05/02/20 [Rx] Sotalol [Betapace, Sorine] 80 mg PO BID 05/02/20 [History] Vitamin B Complex Vit C No.3 [B Complex with Vitamin C] 1 each PO DAILY 05/02/20 [History] Past Medical History Cardiovascular History: Reports: CAD, Hypertension Respiratory History: Reports: None - Past Surgical History Cardiovascular Surgical History: Reports: Coronary Artery Bypass, Coronary Artery Stent Respiratory Surgical History: Reports: None GI Surgical History: Reports: Hernia, Abdominal - History Comment History Comment: reviewed and agree with nursing assessment. Social & Family History - Family History Family Medical History: No Pertinent Family History - Tobacco Use Tobacco Use Status *Q: Never Tobacco User Second Hand Smoke Exposure: No - Caffeine Use Caffeine Use: Reports: None - Living Situation & Occupation Living situation: Reports: , with Family (reviewed and agree with nursing assessement of and FH) ED ROS GENERAL - Review of Systems Review Of Systems: See Below Constitutional: Reports: Chills, Weakness. Denies: Fever HEENT: Reports: No Symptoms Respiratory: Reports: Shortness of Breath. Denies: Wheezing, Pleuritic Chest Pain, Cough, Sputum, Hemoptysis Cardiovascular: Reports: Chest Pain (incisional per patient), Dyspnea on Exertion. Denies: Edema, Lightheadedness, Palpitations, Syncope Endocrine: Reports: No Symptoms GI/Abdominal: Reports: No Symptoms. Denies: Abdominal Pain, Diarrhea, Nausea, Vomiting : Reports: No Symptoms Musculoskeletal: Reports: No Symptoms Skin: Reports: Bruising (LLE, Right groin, Chest), Wound (Chest, Right Groin, LLE) Neurological: Reports: No Symptoms. Denies: Confusion, Dizziness, Headache, Numbness, Tingling, Weakness (not unilateral) Psychiatric: Reports: No Symptoms Hematologic/Lymphatic: Reports: No Symptoms Immunologic: Reports: No Symptoms ED EXAM, GENERAL - Physical Exam Exam: See Below Exam Limited By: No Limitations General Appearance: Alert, WD/WN, No Apparent Distress Eye Exam: Bilateral Eye: Normal Inspection, PERRL Ears: Normal External Exam, Normal Canal, Hearing Grossly Normal, Normal TMs Ear Exam: Bilateral Ear: Auricle Normal, Canal Normal, TM normal Nose: Normal Inspection, Normal Mucosa, No Blood Throat/Mouth: Normal Inspection, Normal Lips, Normal Teeth, Normal Gums, Normal Oropharynx, Normal Voice, No Airway Compromise Head: Atraumatic, Normocephalic Neck: Normal Inspection, Supple, Non-Tender, Full Range of Motion Respiratory/Chest: No Respiratory Distress, Lungs Clear, Normal Breath Sounds, No Accessory Muscle Use, Other (Chest incisional site Zipper, healing well. No drainage, no redness, no heat. Mild tenderness over site with eccyhmosis healing. ) Cardiovascular: Normal Peripheral Pulses, Regular Rate, Rhythm, No Edema, No Gallop, Systolic Murmur Peripheral Pulses: 2+: Radial (L), Radial (R), Posterior Tibial (L), Posterior Tibial (R) GI/Abdominal: Normal Bowel Sounds, Soft, Non-Tender, No Organomegaly, No Distention, No Abnormal Bruit, No Mass, Pelvis Stable (Male) Exam: Deferred Rectal (Males) Exam: Deferred Back Exam: Normal Inspection, Full Range of Motion Extremities: No Pedal Edema, Normal Capillary Refill, Leg Pain (LLE eccyhmosis, CABG incisions. Right Groin CABG incision, all sites tenderness, no redness, no heat, no drainage, no infectious presentation. No pitting edema noted. Swelling LLE with eccymosis. No calf tenderness. ) Neurological: Alert, Oriented, Normal Cognition, No Motor/Sensory Deficits Psychiatric: Normal Affect, Normal Mood Skin Exam: Warm, Dry, Ecchymosis (LLE, Chest), Wound/Incision (Chest Zipper, LLE CABG, Right Groin, Left Groin CABG incisions. Healing. No redness, heat, drainage. ). No: Erythema Course - Vital Signs Last Recorded V/S: Last Vital Signs Temp 98.2 F 05/02/20 05:30 Pulse 72 05/02/20 06:11 Resp 20 05/02/20 06:11 BP 124/67 05/02/20 06:11 Pulse Ox 96 05/02/20 06:11 - Orders/Labs/Meds Orders: Active Orders 24 hr Category Date Time Status Chest 2V [CR] Stat Exams 05/02/20 05:25 Taken Chest PE [Ang Chest] [CT] Stat Exams 05/02/20 07:04 Taken CULTURE BLOOD [BC] Stat Lab 05/02/20 06:25 Received CULTURE BLOOD [BC] Stat Lab 05/02/20 06:28 Received Blood Culture x2 Reflex Set [OM.PC] Stat Oth 05/02/20 06:11 Ordered Labs: Laboratory Tests 05/02/20 05/02/20 05/02/20 Range/Units 05:34 05:34 05:34 WBC 13.2 H (5.0-10.0) 10^3/uL RBC 4.19 L (4.50-6.00) 10^6/uL Hgb 12.8 L (14.0-18.0) g/dL Hct 37.0 L (40.0-54.0) % MCV 88.3 (82.0-94.0) fL MCH 30.5 (27.0-32.0) pg MCHC 34.6 (33.0-38.0) g/dL RDW Coeff of Zachary 13.9 (11.0-15.0) % Plt Count 294 (150-400) 10^3/uL Neut % (Auto) 81.6 (35-85) % Lymph % (Auto) 7.8 L (10-55) % [place] % (Auto) 6.7 (0-16) % Eos % (Auto) 3.6 (0-5) % Baso % (Auto) 0.3 (0-3) % Neut # (Auto) 10.75 H (1.80-7.00) 10^3/uL Lymph # (Auto) 1.03 (1.00-4.80) 10^3/uL [place] # (Auto) 0.88 H (0.00-0.80) 10^3/uL Eos # (Auto) 0.48 H (0.00-0.45) 10^3/uL Baso # (Auto) 0.04 10^3/uL PT 11.9 (9.7-12.3) SEC INR 1.10 (0.92-1.18) APTT 27.8 (23.2-32.3) SEC D-Dimer, Quantitative (0.00-0.50) Sodium 138 (136-145) mEq/L Potassium 3.8 (3.5-5.0) mEq/L Chloride 101 (98-106) mEq/L Carbon Dioxide 24 (21-32) mmol/L BUN 18 (7-18) mg/dL Creatinine 0.9 (0.7-1.3) mg/dL Est Cr Clr Drug Dosing 69.67 mL/min Estimated GFR (MDRD) > 60 (>=60) mL/min Glucose 112 H (75-99) mg/dL Lactic Acid (0.4-2.0) mmol/L Calcium 8.4 (8.4-10.1) mg/dL Magnesium 1.8 (1.8-2.4) mg/dL Total Bilirubin 1.2 H (0.0-1.0) mg/dL AST 30 (15-37) U/L ALT 39 (12-78) U/L Alkaline Phosphatase 68 (46-116) U/L Lactate Dehydrogenase 316 H (100-190) U/L Creatine Kinase 87 (35-232) U/L Troponin I 0.088 H (0.00-0.06) ng/mL NT-Pro-B Natriuret Pep (0-1000) pg/mL Total Protein 6.5 (6.4-8.2) g/dL Albumin 3.1 L (3.4-5.0) g/dL Digoxin (0.9-2.0) ng/mL 05/02/20 05/02/20 05/02/20 Range/Units 05:35 05:35 06:11 WBC (5.0-10.0) 10^3/uL RBC (4.50-6.00) 10^6/uL Hgb (14.0-18.0) g/dL Hct (40.0-54.0) % MCV (82.0-94.0) fL MCH (27.0-32.0) pg MCHC (33.0-38.0) g/dL RDW Coeff of Zachary (11.0-15.0) % Plt Count (150-400) 10^3/uL Neut % (Auto) (35-85) % Lymph % (Auto) (10-55) % [place] % (Auto) (0-16) % Eos % (Auto) (0-5) % Baso % (Auto) (0-3) % Neut # (Auto) (1.80-7.00) 10^3/uL Lymph # (Auto) (1.00-4.80) 10^3/uL [place] # (Auto) (0.00-0.80) 10^3/uL Eos # (Auto) (0.00-0.45) 10^3/uL Baso # (Auto) 10^3/uL PT (9.7-12.3) SEC INR (0.92-1.18) APTT (23.2-32.3) SEC D-Dimer, Quantitative 4.29 H (0.00-0.50) Sodium (136-145) mEq/L Potassium (3.5-5.0) mEq/L Chloride (98-106) mEq/L Carbon Dioxide (21-32) mmol/L BUN (7-18) mg/dL Creatinine (0.7-1.3) mg/dL Est Cr Clr Drug Dosing mL/min Estimated GFR (MDRD) (>=60) mL/min Glucose (75-99) mg/dL Lactic Acid 1.2 (0.4-2.0) mmol/L Calcium (8.4-10.1) mg/dL Magnesium (1.8-2.4) mg/dL Total Bilirubin (0.0-1.0) mg/dL AST (15-37) U/L ALT (12-78) U/L Alkaline Phosphatase (46-116) U/L Lactate Dehydrogenase (100-190) U/L Creatine Kinase (35-232) U/L Troponin I (0.00-0.06) ng/mL NT-Pro-B Natriuret Pep 3621 H (0-1000) pg/mL Total Protein (6.4-8.2) g/dL Albumin (3.4-5.0) g/dL Digoxin 0.6 L (0.9-2.0) ng/mL 05/02/20 Range/Units 09:45 WBC (5.0-10.0) 10^3/uL RBC (4.50-6.00) 10^6/uL Hgb (14.0-18.0) g/dL Hct (40.0-54.0) % MCV (82.0-94.0) fL MCH (27.0-32.0) pg MCHC (33.0-38.0) g/dL RDW Coeff of Zachary (11.0-15.0) % Plt Count (150-400) 10^3/uL Neut % (Auto) (35-85) % Lymph % (Auto) (10-55) % [place] % (Auto) (0-16) % Eos % (Auto) (0-5) % Baso % (Auto) (0-3) % Neut # (Auto) (1.80-7.00) 10^3/uL Lymph # (Auto) (1.00-4.80) 10^3/uL [place] # (Auto) (0.00-0.80) 10^3/uL Eos # (Auto) (0.00-0.45) 10^3/uL Baso # (Auto) 10^3/uL PT (9.7-12.3) SEC INR (0.92-1.18) APTT (23.2-32.3) SEC D-Dimer, Quantitative (0.00-0.50) Sodium (136-145) mEq/L Potassium (3.5-5.0) mEq/L Chloride (98-106) mEq/L Carbon Dioxide (21-32) mmol/L BUN (7-18) mg/dL Creatinine (0.7-1.3) mg/dL Est Cr Clr Drug Dosing mL/min Estimated GFR (MDRD) (>=60) mL/min Glucose (75-99) mg/dL Lactic Acid (0.4-2.0) mmol/L Calcium (8.4-10.1) mg/dL Magnesium (1.8-2.4) mg/dL Total Bilirubin (0.0-1.0) mg/dL AST (15-37) U/L ALT (12-78) U/L Alkaline Phosphatase (46-116) U/L Lactate Dehydrogenase (100-190) U/L Creatine Kinase (35-232) U/L Troponin I 0.085 H (0.00-0.06) ng/mL NT-Pro-B Natriuret Pep (0-1000) pg/mL Total Protein (6.4-8.2) g/dL Albumin (3.4-5.0) g/dL Digoxin (0.9-2.0) ng/mL Meds: Medications Discontinued Medications Generic Name Dose Route Start Last Admin Trade Name Freq PRN Reason Stop Dose Admin Furosemide 40 mg 05/02/20 07:27 05/02/20 07:50 Lasix IVPUSH 05/02/20 07:28 40 mg ONETIME ONE Administration Sodium Chloride 250 mls @ 100 mls/hr 05/02/20 07:15 05/02/20 07:47 Normal Saline IV 05/02/20 09:44 100 mls/hr ASDIRECTED ESTRELLA Administration Iopamidol 100 ml 05/02/20 07:15 05/02/20 07:40 Isovue-370 (76%) IVPUSH 05/02/20 07:16 100 ml ONETIME ONE Administration - Radiology Interpretation Free Text/Narrative:: CXR: Hyperinflation. Small fluid in the left major fissure. New small bilateral pleural effusions. No lobar consolidation. Heart size normal. No significnat vascular congestion. Median sternotomy. CTA Chest: 1. No ct evidence of pulmonary thromboembolic disease. MIild reflux of contrast into the inferior vena cava and hepatic veins may be seen with right heart strain. 2. Postsurgical changes of coronary artery bypass with trace right pneumothorax and few foci of pneumomediastinum. The previously seen graft extending from the aorta likely to a bracnh of the left circumflex artery is occluded. Evaluation of the cornoary arteries is limited on this exam by momtion. Small pericardial effusion. 3. Moderate sized bilateral pleural effusions with associated compressive atelectasis. CT Results Date: 05/02/20 CT Results Time: 08:17 - Re-Assessments/Exams Free Text/Narrative Re-Assessment/Exam: 05/02/20 07:24 Patient Wells Criteria score is low risk for PE with score of 1.5. However, patient complaint of dypsnea, recent CABG surgery, and a D-Dimer over 4, I will CTA the chest. Troponin is elevated in indeterminate range, will repeat in 4 hours past 1st draw to see if changes up or down. Patient currently denies chest pain at this time. He also reports he is not short of breath when sitting up in the stretcher. He also denies increased shortness of breath when laying down in the stretcher. His BNP is also over 3600, have ordered Lasix IV. 05/02/20 08:56 Patient has denied pain. Patient reports his shortness of breath is better. Awaiting troponin repeat. 05/02/20 09:40 Patient reports his shortness of breath is "much better". He reports he has no pain. 05/02/20 10:15 Troponin is negative, no changes from previous. Patient reports dyspnea is resolved. I have sent images to [facility], and called and spoke to [employer]. They have paged Dr Kilgore, the patients washroom operator and will call back. 05/02/20 10:40 I called [facility] to see if they have received all images and checking about speaking with washroom operator. They have spoken to Dr. Kilgore, he is reviewing images and will call me back. 05/02/20 10:50 I spoke to washroom operator Dr. Kilgore about this patient. He has reviewed all images, ekg, labs. He reports pleural effusions caused from fluid overload. He reports to place patient on [id number] BID for 1 week, Potassium daily. He reports to have patient do daily weights and see PCP in 1 week to adjust as needed. Also to see cardiology in clinic. Patient reports no shortness of breath after the Lasix. Departure - Departure Time of Disposition: 11:01 Disposition: Home, Self-Care 01 Condition: Fair Clinical Impression: CHF, Congestive heart failure - Discharge Information *PRESCRIPTION DRUG MONITORING PROGRAM REVIEWED*: Not Applicable *COPY OF PRESCRIPTION DRUG MONITORING REPORT IN PATIENT RERE: Not Applicable Prescriptions: Furosemide [Lasix] 40 mg PO BID #16 tab Potassium Chloride 20 meq PO DAILY #14 tablet.er Instructions: Heart Failure, Diagnosis, [id number], Heart Failure, Self Care, [id number], Preventing Heart Failure Referrals: Krysta Zhang MD [Primary Care Provider] - Forms: ED Department Discharge Additional Instructions: Followup with your cardiology clinic, please call the number provided Monday to make an appointment: Let them know in ER. Followup with your primary care provider within 1 week for management of your Lasix, Potassium, and Fluid Overload Please take your body weight daily and write it down: Please take to your primary care provider and cardiology appointment Potassium Chloride 20 meq take 1 pill daily #14 no refill Lasix 40mg take 1 pill twice a day for 1 week, but do not stop or change until you see your primary care provider to adjust this medication as needed #16 no refill Return to the ER for worsening of condition or any emergent concerns such as chest pain, shortness of breath. Sepsis Event Note (ED) - Evaluation Sepsis Screening Result: No Definite Risk - Focused Exam Vital Signs: Vital Signs Temp Pulse Resp BP Pulse Ox 05/02/20 06:11 72 20 124/67 96 05/02/20 05:30 98.2 F 74 24 H 123/68 96 - My Orders Last 24 Hours: My Active Orders 05/02/20 05:25 Chest 2V [CR] Stat 05/02/20 06:11 Blood Culture x2 Reflex Set [OM.PC] Stat 05/02/20 06:25 CULTURE BLOOD [BC] Stat 05/02/20 06:28 CULTURE BLOOD [BC] Stat 05/02/20 07:04 Chest PE [Ang Chest] [CT] Stat - Assessment/Plan Last 24 Hours: My Active Orders 05/02/20 05:25 Chest 2V [CR] Stat 05/02/20 06:11 Blood Culture x2 Reflex Set [OM.PC] Stat 05/02/20 06:25 CULTURE BLOOD [BC] Stat 05/02/20 06:28 CULTURE BLOOD [BC] Stat 05/02/20 07:04 Chest PE [Ang Chest] [CT] Stat Plan: PLEASE SEE RN NOTE FOR PFSH
[2020-05-02] MEDS ORDERED: Iopamidol 755 Mg/ML 100 ML Bottle IVPUSH ONE (07:15)
[2020-05-02] MEDS ORDERED: Sodium Chloride 0.9% 250 ML IV SCH (07:15)
[2020-05-02] MEDS ORDERED: Furosemide 40 MG/4 ML VIAL IVPUSH ONE (07:27)
== END 2020-05-02 11:45 | disposition home or self-care (01) ==
LOC: CC.ED 05:24
DX: I11.0 Hypertensive heart disease with heart failure (principal); I50.9 Heart failure, unspecified; I25.10 Atherosclerotic heart disease of native coronary artery without angina pectoris; Z79.82 Long term (current) use of aspirin; Z79.02 Long term (current) use of antithrombotics/antiplatelets; Z79.899 Other long term (current) drug therapy
CPT/HCPCS: 36415; 71046; 71275; 80053; 80162; 82550; 83605; 83615; 83735; 83880; 84484; 85025; 85379; 85610; 85730; 87040; 93005; 93010; 96374; 99284; 99285-25; J1940; J7050; Q9967

== ENCOUNTER 2020-05-18 13:58 | Observation (INO) | payer OTHER, MEDICARE ==
[2020-05-18 14:35] LABS: CHLORIDE,CL 102 mEq/L (98-106); SODIUM,NA 140 mEq/L (136-145)
[2020-05-18] MEDS ORDERED: Acetaminophen 325 MG Tab PO PRN (16:31)
[2020-05-18] MEDS: Sodium Chloride 0.9% 1,000 ML IV SCH (17:04)
[2020-05-18] MEDS: SOTALOL 80 MG PO SCH (19:33)
[2020-05-18] MEDS ORDERED: Sotalol 80 MG Tab PO SCH (20:00)
[2020-05-19] MEDS: Sodium Chloride 0.9% 1,000 ML IV SCH (01:12)
[2020-05-19] MEDS: SOTALOL 80 MG PO SCH (07:46)
[2020-05-19] MEDS ORDERED: Aspirin 81 MG Tab.Chew PO SCH (08:00)
[2020-05-19] MEDS ORDERED: SERTRALINE 100 MG **OWN MED PO SCH (08:00)
[2020-05-19] MEDS ORDERED: Digoxin 125 MCG Tab PO SCH (08:00)
[2020-05-19] MEDS ORDERED: Pantoprazole 40 MG Tab.CR **OWN MED PO SCH (08:00)
[2020-05-19] MEDS ORDERED: Clopidogrel 75 MG Tab PO SCH (08:00)
[2020-05-19] MEDS ORDERED: ROSUVASTATIN 10 MG PO SCH (08:00)
[2020-05-19] MEDS ORDERED: METOPROLOL SUCCINATE 50 MG PO SCH (08:00)
[2020-05-19] MEDS ORDERED: DIGOXIN 125 MCG PO SCH (08:00)
[2020-05-19] MEDS ORDERED: Ferrous Sulfate 324 MG Tab.EC PO SCH (08:00)
[2020-05-19] MEDS ORDERED: Pantoprazole 40 MG Tab.CR PO SCH (08:00)
[2020-05-19] MEDS ORDERED: Clopidogrel 75 MG Tab **OWN MED PO SCH (08:00)
--- NOTE | 2020-05-19 12:18 | PCM.DCSUM1 ---
Discharge Summary - Hospital Course HPI Initial Comments: Max is a 75 yo male who was initially admitted under observation status to Dr. Perkins's services yesterday for dehydration and general weakness. Patient was in Cardiac Rehab prior to being seen in the clinic. Was feeling weak and was concerned of a UTI and was seen by Dr. Perkins in clinic. Laboratory work was completed and concerns of mild dehydration. Patient was admitted for IV fluid replacement. Diagnosis: Stroke: No - Discharge Data Discharge Date: 05/19/20 Discharge Disposition: Home, Self-Care 01 Condition: Good - Referral to Home Health Primary Care Physician: Krysta Zhang MD - Discharge Diagnosis/Problem(s) (1) Dehydration SNOMED Code(s): 07925768 ICD Code: E86.0 - DEHYDRATION Status: Acute Current Visit: Yes (2) Generalized weakness SNOMED Code(s): 30416769 ICD Code: R53.1 - WEAKNESS Status: Acute Current Visit: Yes - Patient Instructions Diet: Heart Healthy Diet Activity: As Tolerated - Discharge Plan Home Medications: Home Meds Aspirin 81 mg PO DAILY 06/15/19 [History] Clopidogrel Bisulfate [Plavix] 75 mg PO DAILY 01/17/20 [History] Pantoprazole [ProTONIX] 40 mg PO DAILY 01/17/20 [History] Rosuvastatin Calcium 10 mg PO DAILY 01/17/20 [History] Dane/Vit B12/Folic Acid/Vit B6 [Folic Acid-Vit B6-Vit B12 Tab] 1 each PO DAILY 05/02/20 [History] Digoxin 125 mcg PO DAILY 05/02/20 [History] Ferrous Sulfate 325 mg PO DAILY 05/02/20 [History] Sotalol [Betapace] 80 mg PO BID 05/02/20 [History] Vitamin B Complex Vit C No.3 [B Complex with Vitamin C] 1 each PO DAILY 05/02/20 [History] Dm/Acetaminophen/Doxylamine [Vicks Nyquil Cold-Flu Liquid] 236 ml PO PRN 05/18/20 [History] Nitroglycerin 0.4 mg SL PRN MDD 3 05/18/20 [History] Sertraline HCl 50 mg PO DAILY 05/18/20 [History] Patient Handouts: Dehydration, Adult, [id number], Weakness, [id number] Referrals: Joshua Perkins MD [ED Physician] - (2 weeks) - Discharge Summary/Plan Comment DC Time >30 min.: Yes Discharge Summary/Plan Comment: Max is doing well today. Patient is ready for discharge. 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 Resume diet and medications as directed. Will have him follow up with Dr. Perkins in 2 weeks. Advised to return sooner if any concerns. - General Info Date of Service: 05/19/20 Subjective Update: Max states he is feeling a lot better today and feels he can go home. States getting the fluids seemed to really help. He has no complaints today. Functional Status: Reports: Tolerating Diet, Ambulating, Urinating - Review of Systems General: Reports: Weakness (chronic since CABG) HEENT: Reports: No Symptoms Pulmonary: Reports: No Symptoms Cardiovascular: Reports: No Symptoms Gastrointestinal: Reports: No Symptoms Genitourinary: Reports: No Symptoms Musculoskeletal: Reports: No Symptoms Skin: Reports: No Symptoms Neurological: Reports: No Symptoms Psychiatric: Reports: No Symptoms - Patient Data Vitals - Most Recent: Last Vital Signs Temp 98.8 F 05/19/20 11:58 Pulse 66 05/19/20 11:58 Resp 16 05/19/20 11:58 BP 115/57 L 05/19/20 11:58 Pulse Ox 98 05/19/20 11:58 Weight - Most Recent: 158 lb I&O - Last 24 hours: Intake & Output 05/18/20 05/19/20 05/19/20 22:59 06:59 14:59 Intake Total 1000 Balance 1000 Lab Results - Last 24 hrs: Laboratory Results - last 24 hr 05/18/20 05/18/20 05/18/20 Range/Units 14:08 14:08 14:08 WBC 8.5 (5.0-10.0) 10^3/uL RBC 4.96 (4.50-6.00) 10^6/uL Hgb 14.8 (14.0-18.0) g/dL Hct 43.5 (40.0-54.0) % MCV 87.7 (82.0-94.0) fL MCH 29.8 (27.0-32.0) pg MCHC 34.0 (33.0-38.0) g/dL RDW Coeff of Zachary 14.6 (11.0-15.0) % Plt Count 204 (150-400) 10^3/uL Neut % (Auto) 65.1 (35-85) % Lymph % (Auto) 19.6 (10-55) % [place] % (Auto) 7.6 (0-16) % Eos % (Auto) 7.3 H (0-5) % Baso % (Auto) 0.4 (0-3) % Neut # (Auto) 5.53 (1.80-7.00) 10^3/uL Lymph # (Auto) 1.67 (1.00-4.80) 10^3/uL [place] # (Auto) 0.65 (0.00-0.80) 10^3/uL Eos # (Auto) 0.62 H (0.00-0.45) 10^3/uL Baso # (Auto) 0.03 10^3/uL Sodium 140 (136-145) mEq/L Potassium 4.5 (3.5-5.0) mEq/L Chloride 102 (98-106) mEq/L Carbon Dioxide 26 (21-32) mmol/L BUN 17 (7-18) mg/dL Creatinine 1.1 (0.7-1.3) mg/dL Est Cr Clr Drug Dosing TNP Estimated GFR (MDRD) > 60 (>=60) mL/min Glucose 117 H (75-99) mg/dL Calcium 9.2 (8.4-10.1) mg/dL Total Bilirubin 0.7 (0.0-1.0) mg/dL AST 26 (15-37) U/L ALT 42 (12-78) U/L Alkaline Phosphatase 90 (46-116) U/L Troponin I 0.044 (0.00-0.06) ng/mL C-Reactive Protein 0.8 (0.2-0.8) mg/dL Total Protein 7.1 (6.4-8.2) g/dL Albumin 3.4 (3.4-5.0) g/dL Urine Color Yellow (YELLOW) Urine Appearance Clear (CLEAR) Urine pH 6.0 (4.5-8.0) Ur Specific [place] >= 1.030 H (1.003-1.020) Urine Protein Trace H (NEGATIVE) mg/dL Urine Glucose (UA) Negative (NEGATIVE) mg/dL Urine Ketones Trace H (NEGATIVE) mg/dL Urine Occult Blood Negative (NEGATIVE) Urine Nitrite Negative (NEGATIVE) Urine Bilirubin Negative (NEGATIVE) Urine Urobilinogen 0.2 (0.2-1.0) EU/dL Ur Leukocyte Esterase Negative (NEGATIVE) Urine RBC Not seen (0-5) /HPF Urine WBC Not seen (0-5) /HPF Digoxin (0.9-2.0) ng/mL 05/18/20 05/19/20 Range/Units 16:34 07:00 WBC (5.0-10.0) 10^3/uL RBC (4.50-6.00) 10^6/uL Hgb (14.0-18.0) g/dL Hct (40.0-54.0) % MCV (82.0-94.0) fL MCH (27.0-32.0) pg MCHC (33.0-38.0) g/dL RDW Coeff of Zachary (11.0-15.0) % Plt Count (150-400) 10^3/uL Neut % (Auto) (35-85) % Lymph % (Auto) (10-55) % [place] % (Auto) (0-16) % Eos % (Auto) (0-5) % Baso % (Auto) (0-3) % Neut # (Auto) (1.80-7.00) 10^3/uL Lymph # (Auto) (1.00-4.80) 10^3/uL [place] # (Auto) (0.00-0.80) 10^3/uL Eos # (Auto) (0.00-0.45) 10^3/uL Baso # (Auto) 10^3/uL Sodium (136-145) mEq/L Potassium (3.5-5.0) mEq/L Chloride (98-106) mEq/L Carbon Dioxide (21-32) mmol/L BUN (7-18) mg/dL Creatinine (0.7-1.3) mg/dL Est Cr Clr Drug Dosing Estimated GFR (MDRD) (>=60) mL/min Glucose (75-99) mg/dL Calcium (8.4-10.1) mg/dL Total Bilirubin (0.0-1.0) mg/dL AST (15-37) U/L ALT (12-78) U/L Alkaline Phosphatase (46-116) U/L Troponin I 0.047 (0.00-0.06) ng/mL C-Reactive Protein (0.2-0.8) mg/dL Total Protein (6.4-8.2) g/dL Albumin (3.4-5.0) g/dL Urine Color (YELLOW) Urine Appearance (CLEAR) Urine pH (4.5-8.0) Ur Specific [place] (1.003-1.020) Urine Protein (NEGATIVE) mg/dL Urine Glucose (UA) (NEGATIVE) mg/dL Urine Ketones (NEGATIVE) mg/dL Urine Occult Blood (NEGATIVE) Urine Nitrite (NEGATIVE) Urine Bilirubin (NEGATIVE) Urine Urobilinogen (0.2-1.0) EU/dL Ur Leukocyte Esterase (NEGATIVE) Urine RBC (0-5) /HPF Urine WBC (0-5) /HPF Digoxin 0.9 (0.9-2.0) ng/mL Med Orders - Current: Current Medications Acetaminophen (Acetaminophen 325 Mg Tab) 650 mg PO Q4H PRN PRN Reason: Pain (Mild 1-3)/fever Aspirin (Aspirin 81 Mg Tab.Chew) 81 mg PO DAILY [facility] Last Admin: 05/19/20 07:45 Dose: 81 mg Documented by: Clopidogrel Bisulfate (Clopidogrel 75 Mg Tab Own Med) 75 mg PO DAILY [facility] Last Admin: 05/19/20 07:47 Dose: 75 mg Documented by: Digoxin (Digoxin 125 Mcg Tab Own Med) 125 mcg PO DAILY [facility] Last Admin: 05/19/20 07:47 Dose: 125 mcg Documented by: Ferrous Sulfate (Ferrous Sulfate 324 Mg Tab.Ec) 324 mg PO DAILY [facility] Last Admin: 05/19/20 07:45 Dose: 324 mg Documented by: Sodium Chloride (Normal Saline) 1,000 mls @ 125 mls/hr IV ASDIRECTED [facility] Last Admin: 05/19/20 01:12 Dose: 125 mls/hr Documented by: Metoprolol Succinate [Toprol Xl 50mg] 50 Mg Tab.ErOwn Med* * 50 mg PO DAILY [facility] Last Admin: 05/19/20 09:43 Dose: Not Given Documented by: Sertraline 100 Mg (Own Med) 0 mg PO DAILY [facility] Last Admin: 05/19/20 07:47 Dose: 50 mg Documented by: Rosuvastatin 10 Mg * (*Own Med) 0 mg PO DAILY [facility] Last Admin: 05/19/20 07:48 Dose: 10 mg Documented by: Pantoprazole Sodium (Pantoprazole 40 Mg Tab.Cr Own Med) 40 mg PO DAILY [facility] Last Admin: 05/19/20 07:46 Dose: 40 mg Documented by: Sotalol HCl (Sotalol 80 Mg Tab Own Med) 80 mg PO BID [facility] Last Admin: 05/19/20 07:46 Dose: 80 mg Documented by: - Exam General: Reports: Alert, Oriented Lungs: Reports: Clear to Auscultation, Normal Respiratory Effort Cardiovascular: Reports: Regular Rate, Regular Rhythm, Other (CABG scar appears to be healing well. ) GI/Abdominal Exam: Normal Bowel Sounds, Soft, Non-Tender, No Distention Extremities: Normal Inspection, No Pedal Edema Skin: Reports: Warm, Dry, Intact Psy/Mental Status: Reports: Alert, Normal Affect, Normal Mood
== END 2020-05-19 12:52 | disposition home or self-care (01) ==
LOC: CC.FCMC 13:58 → CC.MS 13:58 → UNDOADMOB 15:25 → CC.MS 16:31
PROVIDERS: ADMIT Family Medicine; ATTEND Family Medicine
DX: R53.1 Weakness (principal); E86.0 Dehydration; R50.9 Fever, unspecified; I25.10 Atherosclerotic heart disease of native coronary artery without angina pectoris; R91.8 Other nonspecific abnormal finding of lung field; Z79.82 Long term (current) use of aspirin; Z79.899 Other long term (current) drug therapy; Z95.1 Presence of aortocoronary bypass graft
CPT/HCPCS: 36415; 71046; 80053; 80162; 81001; 84484; 85025; 86140; 93005; 93010; 99217; 99220; A9270-GY; G0378; J7030

== ENCOUNTER 2023-07-31 10:32 | Observation (INO) | payer OTHER, MEDICARE ==
[2023-07-31 11:06] LABS: BASOPHILS ABSOLUTE AUTO 0.06 10^3/uL (0.00-0.50); BASOPHILS PERCENT AUTO 0.7 % (0-1); EOSINOPHILS ABSOLUTE AUTO 0.33 10^3/uL (0.00-1.50); EOSINOPHILS PERCENT AUTO 3.8 % (0-6); HEMATOCRIT 49.4 % (42.0-52.0); HEMOGLOBIN 16.2 g/dL (14.0-18.0); IMMATURE GRAN ABSOLUTE AUTO 0.01 10^3/uL (0.00-0.49); IMMATURE GRAN PERCENT AUTO 0.1 % (0.0-4.9); LYMPHOCYTES ABSOLUTE AUTO 1.62 10^3/uL (0.60-5.00); LYMPHOCYTES PERCENT AUTO 18.8 % (24-44); MEAN CORPUSCULAR HEMOGLOBIN 28.7 pg (27.0-32.0); MEAN CORPUSCULAR HGB CONC 32.8 g/dL (32.0-36.0); MEAN CORPUSCULAR VOLUME 87.6 fL (83.0-97.0); MONOCYTES ABSOLUTE AUTO 0.43 10^3/uL (0.00-1.50); NEUTROPHILS ABSOLUTE AUTO 6.17 x10^3/uL (1.80-8.00); NEUTROPHILS PERCENT AUTO 71.6 % (41-71); PLATELET COUNT,PLT 168 10^3/uL (150-400); RED BLOOD CELL COUNT 5.64 x10^6/uL (4.50-6.00); WHITE BLOOD CELL COUNT,WBC 8.6 10^3/uL (4.0-11.0)
[2023-07-31 11:24] LABS: ALBUMIN 3.9 g/dL (3.4-5.0); BILIRUBIN TOTAL 2.7 mg/dL (0.0-1.0); CALCIUM 8.9 mg/dL (8.4-10.1); EST CRCL DRUG DOSING (CG) 58.9 mL/min; POTASSIUM,K 4.7 mEq/L (3.5-5.0); PROTEIN TOTAL,TP 7.3 g/dL (6.4-8.2)
[2023-07-31] MEDS: Metoprolol Tartrate 5 MG/5 ML SDV IVPUSH ONE (11:33)
[2023-07-31] MEDS: Sodium Chloride 0.9% 500 ML IV SCH (12:23)
[2023-07-31] MEDS: Diltiazem 25 MG/5 ML SDV IVPUSH ONE ×2 (12:27→12:48)
[2023-07-31] MEDS: Diltiazem 100 MG in Sodium Chloride 0.9% 100 ML IV SCH (12:31)
[2023-07-31] MEDS ORDERED: Docusate Sodium 100 MG Cap PO PRN (13:01)
[2023-07-31] MEDS ORDERED: Acetaminophen 325 MG Tab PO PRN (13:01)
[2023-07-31] MEDS ORDERED: Ondansetron 4 MG Tab.DIS PO PRN (13:01)
[2023-07-31] MEDS ORDERED: Ondansetron 4 MG/2 ML SDV IV PRN (13:01)
[2023-07-31] MEDS ORDERED: Polyethylene Glycol 3350 Powder 17 GM Packet PO PRN (13:01)
[2023-07-31] MEDS: Sodium Chloride 0.9% 500 ML IV ONE (15:00)
[2023-07-31] MEDS: Diltiazem 120 MG Cap.CD PO ONE (15:01)
[2023-07-31] MEDS: Rosuvastatin 10 MG Tab PO SCH (19:11)
[2023-07-31] MEDS: Apixaban 5 MG Tab PO SCH (19:12)
[2023-08-01] MEDS: Pantoprazole 40 MG Tab.CR PO SCH (06:00)
[2023-08-01 07:00] LABS: BASOPHILS ABSOLUTE AUTO 0.05 10^3/uL (0.00-0.50); BASOPHILS PERCENT AUTO 0.6 % (0-1); EOSINOPHILS ABSOLUTE AUTO 0.55 10^3/uL (0.00-1.50); EOSINOPHILS PERCENT AUTO 6.6 % (0-6); HEMATOCRIT 42.8 % (42.0-52.0); IMMATURE GRAN ABSOLUTE AUTO 0.02 10^3/uL (0.00-0.49); IMMATURE GRAN PERCENT AUTO 0.2 % (0.0-4.9); LYMPHOCYTES ABSOLUTE AUTO 2.11 10^3/uL (0.60-5.00); LYMPHOCYTES PERCENT AUTO 25.4 % (24-44); MEAN CORPUSCULAR HEMOGLOBIN 28.7 pg (27.0-32.0); MEAN CORPUSCULAR HGB CONC 32.7 g/dL (32.0-36.0); MEAN CORPUSCULAR VOLUME 87.9 fL (83.0-97.0); MONOCYTES ABSOLUTE AUTO 0.66 10^3/uL (0.00-1.50); MONOCYTES PERCENT AUTO 7.9 % (0-10); NEUTROPHILS ABSOLUTE AUTO 4.92 x10^3/uL (1.80-8.00); NEUTROPHILS PERCENT AUTO 59.3 % (41-71); PLATELET COUNT,PLT 152 10^3/uL (150-400); RED BLOOD CELL COUNT 4.87 x10^6/uL (4.50-6.00); WHITE BLOOD CELL COUNT,WBC 8.3 10^3/uL (4.0-11.0)
[2023-08-01 07:19] LABS: CALCIUM 8.3 mg/dL (8.4-10.1); CREATININE 1.1 mg/dL (0.7-1.3); EST CRCL DRUG DOSING (CG) 53.55 mL/min; POTASSIUM,K 4.4 mEq/L (3.5-5.0)
[2023-08-01] MEDS: Isosorbide Mononitrate 30 MG Tab.ER PO SCH (07:58)
[2023-08-01] MEDS: Calcium Carbonate/Vitamin D3 1250 MG-5 MCG Tab PO SCH (07:58)
[2023-08-01] MEDS: Diltiazem 120 MG Cap.CD PO SCH (07:59)
[2023-08-01] MEDS: Diltiazem 25 MG/5 ML SDV IVPUSH ONE ×2 (09:27→12:28)
[2023-08-01] MEDS: Diltiazem 120 MG Cap.CD PO ONE (09:47)
[2023-08-02] MEDS ORDERED: Diltiazem 120 MG Cap.CD PO SCH (08:00)
== END 2023-08-01 14:15 | disposition home or self-care (01) ==
LOC: CC.ED 10:32 → CC.MS 12:01 → UNDOADMOB 12:01 → CC.MS 12:20
PROVIDERS: ADMIT Nurse Practitioner; ATTEND Nurse Practitioner
DX: I48.3 Typical atrial flutter (principal); I25.10 Atherosclerotic heart disease of native coronary artery without angina pectoris; I10 Essential (primary) hypertension; Z79.02 Long term (current) use of antithrombotics/antiplatelets; Z79.899 Other long term (current) drug therapy
CPT/HCPCS: 36415; 80048; 80053; 83735; 84484; 85025; 93005; 96365; 96375; 99285; A9270; J3490; J7040; 96366; 96376; G0378